=== PATIENT | female | born 1955 | race Caucasian/White ===

== ENCOUNTER 2018-07-31 23:00 | Emergency (ER) | payer MEDICARE ==
[~2018-07-31] VITALS: Ht 162.6 cm; Wt 53.2 kg
[2018-07-31 23:03] VITALS: Ht 162.6 cm; Wt 53.2 kg
[2018-07-31 23:58] VITALS: BP 115/69
== END 2018-07-31 23:58 | disposition home or self-care (01) ==
LOC: D.ER 23:00
DX: S61.411A Laceration without foreign body of right hand, initial encounter (principal); X58.XXXA Exposure to other specified factors, initial encounter; Y93.9 Activity, unspecified; Y92.019 Unspecified place in single-family (private) house as the place of occurrence of the external cause; E11.9 Type 2 diabetes mellitus without complications; F17.200 Nicotine dependence, unspecified, uncomplicated